=== PATIENT | female | born 1995 | race African-American/Black ===

== ENCOUNTER 2018-05-30 18:24 | Emergency (ER) | payer OTHER ==
[~2018-05-30] VITALS: Ht 162.6 cm; Wt 97.5 kg
[~2018-05-30 18:24] MED LIST: ACETAMINOPHEN-120 ML PO; AMOXICILLIN875 MG PO; KEFLEX500 MG PO; NORCO 5-325 TA1 EACH PO; PEPCID20 MG PO
[2018-05-30 19:08] LABS: URINE BILIRUBIN NEGATIVE (Negative); URINE BLOOD NEGATIVE (Negative); URINE CLARITY CLEAR; URINE COLOR YELLOW; URINE GLUCOSE-RANDOM* NEGATIVE (Negative); URINE KETONES TRACE (Negative); URINE LEUKOCYTES-REFLEX NEGATIVE (Negative); URINE NITRITE-REFLEX NEGATIVE (Negative); URINE PROTEIN (DIPSTICK) NEGATIVE (Negative); URINE SPECIFIC GRAVITY 1.025 (1.005-1.035); URINE UROBILINOGEN 0.2 E.U./dl (0.2-1.0)
[2018-05-30 19:10] LABS: ABSOLUTE NEUTROPHILS 10.6 thou/uL (1.4-8.2); BASOPHILS 0.5 % (0.0-2.0); EOSINOPHILS 1.3 % (0.0-3.0); HEMOGLOBIN 10.9 gm/dL (12.0-15.0); MCH 27.8 pg (26.0-34.0); MCHC 32.2 g/dL (28.0-37.0); MCV 86.3 fL (80.0-100.0); PLATELET COUNT 286 thou/uL (150-400); POLYS 87.2 % (36.0-66.0); RBC 3.94 mil/uL (4.20-5.00); RDW 12.6 % (10.5-14.5); WBC 12.2 thou/uL (4.0-11.0)
[2018-05-30 19:14] LABS: CALCIUM 8.9 mg/dL (8.5-10.1); POTASSIUM 3.5 mmol/L (3.5-5.1)
[2018-05-30 19:16] LABS: AMP/METHAMP Negative (Negative); BARBITURATES Negative (Negative); BENZODIAZEPINES Negative (Negative); COCAINE Negative (Negative); METHADONE Negative (Negative); OPIATES Negative (Negative); PCP Negative (Negative)
[2018-05-30 20:26] VITALS: BP 110/71
== END 2018-05-30 20:27 | disposition home or self-care (01) ==
LOC: ER 18:24
PROVIDERS: Physician Assistant
DX: B34.9 Viral infection, unspecified (principal); J06.9 Acute upper respiratory infection, unspecified; J02.9 Acute pharyngitis, unspecified; L30.9 Dermatitis, unspecified; J45.909 Unspecified asthma, uncomplicated